=== PATIENT | female | born 1990 | race Caucasian/White ===

== ENCOUNTER 2017-02-18 06:33 | Emergency (ER) | payer OTHER ==
[2017-02-18] MEDS: ACETAMINOPHEN 500 MG TAB PO (07:33)
[2017-02-18 08:23] LABS: ADD UMIC YES; UR ASCORBIC ACID NEGATIVE (NEGATIVE); UR BACTERIA FEW /HPF (NONE SEEN); UR BILIRUBIN (Dip) NEGATIVE (NEGATIVE); UR BLOOD (Dip) NEGATIVE (NEGATIVE); UR CLARITY CLOUDY (CLEAR); UR COLOR YELLOW (YELLOW); UR GLUCOSE (Dip) NEGATIVE (NEGATIVE); UR KETONES (Dip) TRACE mg/dL (NEGATIVE); UR LEUKOCYTE ESTERASE (Dip) 2+ Leu/ul (NEGATIVE); UR MUCUS FEW /HPF (NONE SEEN); UR NITRITE (Dip) NEGATIVE (NEGATIVE); UR RBC 2 /HPF (0-5); UR SPECIFIC GRAVITY (Dip) 1.028 (1.003-1.030); UR SQUAMOUS EPITHELIAL CELL MANY /HPF (FEW); UR TOTAL PROTEIN (Dip) NEGATIVE (NEGATIVE); UR UROBILINOGEN (Dip) NEGATIVE (NEGATIVE); UR WBC 18 /HPF (0-5)
== END 2017-02-18 08:53 | disposition home or self-care (01) ==
LOC: FTE 06:33
DX: N39.0 Urinary tract infection, site not specified (principal); R09.89 Other specified symptoms and signs involving the circulatory and respiratory systems
CPT/HCPCS: 81001; 87400; 99284

== ENCOUNTER 2017-10-29 19:38 | Emergency (ER) | payer OTHER | END 2017-10-29 21:38 | disposition home or self-care (01) | LOC: FTE 19:38 | DX: S91.012A Laceration without foreign body, left ankle, initial encounter (principal); W25.XXXA Contact with sharp glass, initial encounter; Y92.9 Unspecified place or not applicable | CPT/HCPCS: 12001; 73610; 99283-25 ==

== ENCOUNTER 2018-07-17 20:33 | Emergency (ER) | payer OTHER | END 2018-07-17 23:00 | disposition home or self-care (01) | LOC: FTE 23:00 | DX: J04.0 Acute laryngitis (principal) | CPT/HCPCS: 99283; Z7502 ==